=== PATIENT | male | born 1950 | race Caucasian/White ===

== ENCOUNTER 2021-05-15 15:38 | Outpatient (CLI) | payer MEDICARE | END 2021-05-15 15:39 | disposition home or self-care (01) | LOC: CSHRAD 15:38 | PROVIDERS: ATTEND Family Medicine | DX: R35.0 Frequency of micturition (principal); R41.0 Disorientation, unspecified; R10.84 Generalized abdominal pain; R09.89 Other specified symptoms and signs involving the circulatory and respiratory systems; R91.8 Other nonspecific abnormal finding of lung field | CPT/HCPCS: 71046 ==